=== PATIENT | male | born 1960 | race Caucasian/White ===

== ENCOUNTER 2017-04-03 12:46 | Emergency (ER) | payer MEDICAID, OTHER ==
[~2017-04-03] VITALS: Ht 177.8 cm; Wt 72.6 kg
[2017-04-03 15:24] VITALS: BP 167/97
== END 2017-04-03 15:59 | disposition home or self-care (01) ==
LOC: ER 12:46
DX: M25.512 Pain in left shoulder (principal); Z76.0 Encounter for issue of repeat prescription; Z86.73 Personal history of transient ischemic attack (TIA), and cerebral infarction without residual deficits

== ENCOUNTER 2017-05-20 21:02 | Inpatient (IN) | payer MEDICAID ==
[~2017-05-20] VITALS: Ht 175.3 cm; Wt 63.6 kg
[2017-05-20 22:44] LABS: Basophils # (auto) 0.1 uL; Basophils % (auto) 1.2 % (0.0-2.0); Eosinophils # (auto) 0.2 uL; Eosinophils % (auto) 1.9 % (0.0-7.0); Hematocrit 41.4 % (41.0-53.0); Hemoglobin 13.6 g/dL (13.5-17.5); Lymphocytes # (auto) 2.6 uL; Mean Corpuscular Hemoglobin 29.2 pg (28.0-32.0); Mean Corpuscular Hgb Conc. 32.9 g/dL (32.0-36.0); Mean Corpuscular Volume 88.6 fL (80.0-100.0); Monocytes # (auto) 0.9 uL; Monocytes % (auto) 7.1 % (0.0-12.0); Neutrophils # (auto) 8.1 uL; Neutrophils % (auto) 67.8 % (37.0-80.0); Nucleated Red Blood Cells % 0.2 %; Platelet Count (auto) 331 10^3/uL (140-450); Red Blood Cells 4.67 10^6/uL (4.5-5.90); Red Cell Distribution Width 14.5 % (11.8-14.3)
[2017-05-20 22:53] LABS: Albumin 3.7 g/dL (3.4-5.0); Bilirubin, Total 0.2 mg/dL (0.2-1.0); Calcium 9.2 mg/dL (8.5-10.1)
[2017-05-21 05:43] LABS: Urine Bacteria NONE SEEN /hpf (None Seen); Urine Blood Negative /uL (Negative); Urine Hyaline Cast MOD /lpf (0 - 2); Urine Mucus FEW (None Seen); Urine Specific Gravity 1.018 (1.001-1.035); Urine WBC 2 /hpf (0 - 3)
[2017-05-21] MEDS ORDERED: SODIUM CHLORIDE 0.9% 1,000 ML IVB ONE (08:37)
[2017-05-21] MEDS ORDERED: PROMETHAZINE HCL 25 MG/ML 1ML IV PRN (08:45)
[2017-05-21] MEDS ORDERED: NALBUPHINE HCL 10 MG/1ml INJECTION IV ONE (08:45)
[2017-05-21] MEDS ORDERED: GABA-339 PO (09:50)
[2017-05-21] MEDS ORDERED: AML5T PO (09:50)
[2017-05-21] MEDS ORDERED: LISI40TA PO (09:50)
[2017-05-21] MEDS ORDERED: SIMV-8 PO (09:50)
[2017-05-21] MEDS ORDERED: ONDANSETRON HCL 4 MG/2 ML VIAL IV PRN (10:15)
[2017-05-21] MEDS ORDERED: ACETAMINOPHEN 325 MG TAB PO PRN (10:15)
[2017-05-21] MEDS ORDERED: HYDROcodone-ACET 5/325MG TAB PO PRN (10:15)
[2017-05-21] MEDS ORDERED: NITROGLYCERIN 0.4 MG SL TAB SL PRN (10:15)
[2017-05-21] MEDS ORDERED: TEMAZEPAM 15 MG CAP PO PRN (10:15)
[2017-05-21] MEDS ORDERED: MORPHINE SULFATE 4 MG/ML SYR/VIAL IV PRN ×2 (10:15)
[2017-05-21] MEDS ORDERED: cefTRIAXone 1GM/10ml IVPUSH 10 ML IV ONE (10:30)
[2017-05-21] MEDS: SODIUM CHLORIDE 0.9% 1,000 ML IV SCH ×2 (10:55→19:06)
[2017-05-21 11:26] LABS: INR 0.95 (0.9-1.15); Prothrombin Time 10.4 sec (9.37-12.3)
[2017-05-21] MEDS: IPRATROPIUM BROM 0.5 MG/2.5ML INH SOL NEB SCH ×3 (11:44→23:57)
[2017-05-21] MEDS: ALBUTEROL SULF 2.5 MG/0.5ML(0.5%) NEB SOLN NEB SCH ×3 (11:44→23:56)
[2017-05-21 11:55] VITALS: BP 120/84
[2017-05-21] MEDS ORDERED: GABAPENTIN 300 MG CAP PO SCH (14:00)
[2017-05-21 14:10] VITALS: BP 137/84
[2017-05-21 17:00] VITALS: BP 136/83
[2017-05-21 20:00] VITALS: BP 149/89
[2017-05-21] MEDS ORDERED: INFLUENZA QUAD 2017-2018 0.5 ML SYRG IM ONE (20:00)
[2017-05-21] MEDS ORDERED: PNEUMOCOCCAL VACC POLYS 25 MCG/0.5 ML VIAL IM ONE (20:00)
[2017-05-21 22:00] VITALS: BP 149/89
[2017-05-21] MEDS ORDERED: FAMOTIDINE 20 MG TAB PO SCH (22:00)
[2017-05-21] MEDS: ASPirin-EC 81 mg tab PO SCH (22:21)
[2017-05-21] MEDS: ATORVASTATIN 20 MG TAB PO SCH (22:21)
[2017-05-21] MEDS: LISINOPRIL 20 MG TAB PO SCH (22:22)
[2017-05-21] MEDS: ASCORBIC ACID 500 MG TAB PO SCH (22:22)
[2017-05-22] MEDS: SODIUM CHLORIDE 0.9% 1,000 ML IV SCH ×3 (02:50→11:45)
[2017-05-22 05:00] VITALS: BP 130/79
[2017-05-22] MEDS: IPRATROPIUM BROM 0.5 MG/2.5ML INH SOL NEB SCH ×3 (06:28→19:49)
[2017-05-22] MEDS: ALBUTEROL SULF 2.5 MG/0.5ML(0.5%) NEB SOLN NEB SCH ×3 (06:28→19:49)
[2017-05-22 06:44] LABS: Basophils # (auto) 0.1 uL; Eosinophils # (auto) 0.3 uL; Eosinophils % (auto) 2.9 % (0.0-7.0); Hematocrit 39.7 % (41.0-53.0); Hemoglobin 12.9 g/dL (13.5-17.5); Lymphocytes # (auto) 1.7 uL; Lymphocytes % (auto) 17.8 % (10.0-50.0); Mean Corpuscular Hemoglobin 29.1 pg (28.0-32.0); Mean Corpuscular Hgb Conc. 32.5 g/dL (32.0-36.0); Mean Corpuscular Volume 89.4 fL (80.0-100.0); Monocytes # (auto) 0.7 uL; Monocytes % (auto) 6.8 % (0.0-12.0); Neutrophils # (auto) 6.9 uL; Neutrophils % (auto) 71.5 % (37.0-80.0); Platelet Count (auto) 244 10^3/uL (140-450); Red Blood Cells 4.45 10^6/uL (4.5-5.90); Red Cell Distribution Width 13.9 % (11.8-14.3); White Blood Cell 9.7 10^3/uL (4.4-10.8)
[2017-05-22 07:06] LABS: Albumin 2.9 g/dL (3.4-5.0); BUN/Creatinine Ratio 20.6; Calcium 8.4 mg/dL (8.5-10.1)
[2017-05-22 07:23] LABS: Bilirubin, Total 0.5 mg/dL (0.2-1.0); Total Protein 6.2 g/dL (6.4-8.2)
[2017-05-22 08:38] VITALS: BP 122/78
[2017-05-22] MEDS: cefTRIAXone 1GM/10ml IVPUSH 10 ML IV SCH (08:55)
[2017-05-22] MEDS ORDERED: ASPirin-EC 81 mg tab PO SCH ×2 (10:00→19:00)
[2017-05-22] MEDS: ASCORBIC ACID 500 MG TAB PO SCH ×2 (10:10→21:57)
[2017-05-22] MEDS: ASPirin-EC 81 mg tab PO SCH (10:10)
[2017-05-22] MEDS: MULTIPLE VITAMIN TAB PO SCH (10:10)
[2017-05-22] MEDS: FAMOTIDINE 20 MG TAB PO SCH ×2 (10:10→21:55)
[2017-05-22] MEDS: amLODIPine BESYLATE 5 MG TAB PO SCH (10:11)
[2017-05-22] MEDS: LISINOPRIL 20 MG TAB PO SCH ×2 (10:11→21:56)
[2017-05-22 13:12] VITALS: BP 117/80
[2017-05-22] MEDS: GABAPENTIN 300 MG CAP PO SCH ×2 (14:26→21:55)
[2017-05-22 16:57] VITALS: BP 129/83
[2017-05-22 21:48] VITALS: BP 138/75
[2017-05-22] MEDS: ATORVASTATIN 20 MG TAB PO SCH (21:55)
[2017-05-23] MEDS: IPRATROPIUM BROM 0.5 MG/2.5ML INH SOL NEB SCH ×3 (00:48→12:08)
[2017-05-23] MEDS: ALBUTEROL SULF 2.5 MG/0.5ML(0.5%) NEB SOLN NEB SCH ×3 (00:48→12:08)
[2017-05-23 05:11] VITALS: BP 138/81
[2017-05-23] MEDS: GABAPENTIN 300 MG CAP PO SCH ×2 (05:59→13:56)
[2017-05-23] MEDS: SODIUM CHLORIDE 0.9% 1,000 ML IV SCH ×2 (05:59→12:10)
[2017-05-23 06:33] LABS: BUN/Creatinine Ratio 14.2; Calcium 8.7 mg/dL (8.5-10.1); Potassium 4.5 mmol/L (3.5-5.1)
[2017-05-23 07:42] VITALS: BP 138/95
[2017-05-23] MEDS: ASPirin-EC 81 mg tab PO SCH (08:17)
[2017-05-23] MEDS: cefTRIAXone 1GM/10ml IVPUSH 10 ML IV SCH (08:17)
[2017-05-23] MEDS: MULTIPLE VITAMIN TAB PO SCH (08:17)
[2017-05-23] MEDS: ASCORBIC ACID 500 MG TAB PO SCH (08:17)
[2017-05-23] MEDS: FAMOTIDINE 20 MG TAB PO SCH (08:17)
[2017-05-23] MEDS: amLODIPine BESYLATE 5 MG TAB PO SCH (08:18)
[2017-05-23] MEDS: LISINOPRIL 20 MG TAB PO SCH (08:18)
[2017-05-23 11:50] VITALS: BP 114/84
[2017-05-23] MEDS ORDERED: PNEUMOCOCCAL VACC POLYS 25 MCG/0.5 ML VIAL IM ONE (13:45)
[2017-05-23] MEDS ORDERED: INFLUENZA QUAD 2017-2018 0.5 ML SYRG IM ONE (13:45)
== END 2017-05-23 15:00 | disposition home or self-care (01) | DRG 282 ==
LOC: ER 21:02 → OVERFLOW 21:03 → CENTRAL 05-21 14:11
PROVIDERS: ADMIT Internal Medicine; ATTEND Internal Medicine
DX: K85.90 Acute pancreatitis without necrosis or infection, unspecified (principal); N17.0 Acute kidney failure with tubular necrosis; N18.4 Chronic kidney disease, stage 4 (severe); R65.10 Systemic inflammatory response syndrome (SIRS) of non-infectious origin without acute organ dysfunction; I69.351 Hemiplegia and hemiparesis following cerebral infarction affecting right dominant side; E78.5 Hyperlipidemia, unspecified; G89.29 Other chronic pain; R91.1 Solitary pulmonary nodule; I12.9 Hypertensive chronic kidney disease with stage 1 through stage 4 chronic kidney disease, or unspecified chronic kidney disease; M25.512 Pain in left shoulder; J44.9 Chronic obstructive pulmonary disease, unspecified; M47.816 Spondylosis without myelopathy or radiculopathy, lumbar region; Z82.49 Family history of ischemic heart disease and other diseases of the circulatory system; Z87.891 Personal history of nicotine dependence; Z79.899 Other long term (current) drug therapy; Z23 Encounter for immunization
CPT/HCPCS: 36415; 71046; 71250; 73030; 74176; 80048; 80053; 81001; 82150; 83605; 83690; 83735; 84443; 84484; 85025; 85610; 87040; 87045; 87493; 87899; 93005; 93306; 93886; 94640; 96361; 96374; 96375

== ENCOUNTER 2017-06-25 16:46 | Emergency (ER) | payer MEDICAID ==
[~2017-06-25] VITALS: Ht 175.3 cm; Wt 59.0 kg
[~2017-06-25 16:46] MED LIST: AML5T PO; GABA-339 PO; LISI40TA PO; SIMV-8 PO
[2017-06-25 17:30] VITALS: BP 142/81
[2017-06-25 17:53] LABS: Urine Bacteria FEW /hpf (None Seen); Urine Blood Negative /uL (Negative); Urine Hyaline Cast MOD /lpf (0 - 2); Urine Mucus FEW (None Seen); Urine Specific Gravity 1.016 (1.001-1.035); Urine WBC 1 /hpf (0 - 3)
[2017-06-25 17:59] LABS: Basophils # (auto) 0.1 uL; Basophils % (auto) 0.7 % (0.0-2.0); Eosinophils # (auto) 0.2 uL; Eosinophils % (auto) 1.6 % (0.0-7.0); Hematocrit 44.1 % (41.0-53.0); Hemoglobin 14.6 g/dL (13.5-17.5); Lymphocytes # (auto) 1.5 uL; Mean Corpuscular Hemoglobin 29.1 pg (28.0-32.0); Mean Corpuscular Hgb Conc. 33.2 g/dL (32.0-36.0); Mean Corpuscular Volume 87.5 fL (80.0-100.0); Monocytes # (auto) 0.7 uL; Neutrophils # (auto) 7.8 uL; Neutrophils % (auto) 75.7 % (37.0-80.0); Nucleated Red Blood Cells % 0.4 %; Platelet Count (auto) 265 10^3/uL (140-450); Red Blood Cells 5.04 10^6/uL (4.5-5.90); Red Cell Distribution Width 14.5 % (11.8-14.3); White Blood Cell 10.3 10^3/uL (4.4-10.8)
[2017-06-25 18:16] LABS: Albumin 4.1 g/dL (3.4-5.0); BUN/Creatinine Ratio 17.8; Bilirubin, Total 0.2 mg/dL (0.2-1.0); Calcium 8.5 mg/dL (8.5-10.1); Potassium 4.3 mmol/L (3.5-5.1)
== END 2017-06-26 02:20 | disposition left against medical advice (07) ==
LOC: ER 16:46
DX: R10.9 Unspecified abdominal pain (principal); R11.2 Nausea with vomiting, unspecified; Z53.21 Procedure and treatment not carried out due to patient leaving prior to being seen by health care provider
CPT/HCPCS: 36415; 80053; 81001; 82150; 83690; 85025; 93005

== ENCOUNTER 2018-01-22 14:45 | Inpatient (IN) | payer MEDICAID ==
[~2018-01-22] VITALS: Ht 177.8 cm; Wt 70.2 kg
[2018-01-22] MEDS: ACCU-CHEK COMFORT CURVE STRIP VI SCH (00:15)
[2018-01-22] MEDS: GABAPENTIN 300 MG CAP PO SCH (00:30)
[2018-01-22] MEDS: InsuLIN REG 1unit/0.01ml Soln (100units/ml) SC SCH (00:30)
[2018-01-22] MEDS: LISINOPRIL 20 MG TAB PO SCH (00:30)
[2018-01-22] MEDS: FAMOTIDINE 20 MG TAB PO SCH (00:30)
[2018-01-22] MEDS: ATORVASTATIN 20 MG TAB PO SCH (00:30)
[~2018-01-22 14:45] MED LIST changes: +ASPI81CH43 PO
[2018-01-22 15:22] LABS: Basophils # (auto) 0.1 uL; Basophils % (auto) 1.3 % (0.0-2.0); Eosinophils # (auto) 0.1 uL; Eosinophils % (auto) 1.6 % (0.0-7.0); Hemoglobin 15.5 g/dL (13.5-17.5); Lymphocytes # (auto) 2.1 uL; Lymphocytes % (auto) 23.8 % (10.0-50.0); Mean Corpuscular Hemoglobin 29.8 pg (28.0-32.0); Mean Corpuscular Hgb Conc. 33.6 g/dL (32.0-36.0); Mean Corpuscular Volume 88.6 fL (80.0-100.0); Monocytes # (auto) 0.5 uL; Monocytes % (auto) 5.9 % (0.0-12.0); Neutrophils # (auto) 5.8 uL; Neutrophils % (auto) 67.4 % (37.0-80.0); Nucleated Red Blood Cells % 0.1 %; Platelet Count (auto) 192 10^3/uL (140-450); Red Cell Distribution Width 14.3 % (11.8-14.3); White Blood Cell 8.6 10^3/uL (4.4-10.8)
[2018-01-22 15:41] LABS: Albumin 3.7 g/dL (3.4-5.0); BUN/Creatinine Ratio 13.8; Calcium 9.1 mg/dL (8.5-10.1); Potassium 3.8 mmol/L (3.5-5.1)
[2018-01-22 15:50] LABS: Bilirubin, Total 0.5 mg/dL (0.2-1.0); Total Protein 7.7 g/dL (6.4-8.2)
[2018-01-22] MEDS ORDERED: MORPHINE SULFATE 4 MG/ML SYR/VIAL IV ONE (17:45)
[2018-01-22] MEDS ORDERED: ONDANSETRON HCL 4 MG/2 ML VIAL IV ONE (17:45)
[2018-01-22] MEDS ORDERED: DEXTROSE (50%) 50ML SYRG IV PRN (19:00)
[2018-01-22] MEDS ORDERED: cloNIDine HCL 0.1 MG TAB PO PRN (19:15)
[2018-01-22] MEDS ORDERED: NITROGLYCERIN 0.4 MG SL TAB SL PRN (19:15)
[2018-01-22] MEDS ORDERED: TEMAZEPAM 15 MG CAP PO PRN (19:15)
[2018-01-22] MEDS ORDERED: DOCUSATE SOD 100 MG CAP PO PRN (19:15)
[2018-01-22] MEDS ORDERED: ONDANSETRON HCL 4 MG/2 ML VIAL IV PRN (19:15)
[2018-01-22] MEDS ORDERED: ACETAMINOPHEN 325 MG TAB PO PRN (19:15)
[2018-01-22] MEDS ORDERED: MORPHINE SULFATE 4 MG/ML SYR/VIAL IV PRN (19:15)
[2018-01-22] MEDS ORDERED: cefTRIAXone 1GM/50ML D5W 50 ML IV ONE (19:15)
[2018-01-22 19:21] LABS: INR 0.96 (0.9-1.15); Prothrombin Time 10.3 sec (9.27-12.13)
[2018-01-22] MEDS: SODIUM CHLORIDE 0.9% 1,000 ML IV SCH (21:24)
[2018-01-22 22:55] LABS: Urine Bacteria NONE SEEN /hpf (None Seen); Urine Blood Negative /uL (Negative); Urine Hyaline Cast FEW /lpf (0 - 2); Urine Mucus FEW (None Seen); Urine WBC 1 /hpf (0 - 3)
[2018-01-23] VITALS (7 sets, daily range): BP systolic 139–151; BP diastolic 80–93
[2018-01-23] MEDS: metroNIDAZOLE 500MG/100ML 100 ML IV SCH ×2 (00:42→06:36)
[2018-01-23 05:01] LABS: Urine Bacteria NONE SEEN /hpf (None Seen); Urine Blood Negative /uL (Negative); Urine Specific Gravity 1.006 (1.001-1.035); Urine WBC <1 /hpf (0 - 3)
[2018-01-23] MEDS: MORPHINE SULFATE 4 MG/ML SYR/VIAL IV PRN (05:25)
[2018-01-23 05:32] LABS: Basophils # (auto) 0.1 uL; Basophils % (auto) 0.9 % (0.0-2.0); Eosinophils # (auto) 0.4 uL; Eosinophils % (auto) 4.8 % (0.0-7.0); Hematocrit 42.2 % (41.0-53.0); Hemoglobin 14.1 g/dL (13.5-17.5); Lymphocytes # (auto) 2.2 uL; Lymphocytes % (auto) 27.5 % (10.0-50.0); Mean Corpuscular Hemoglobin 30.6 pg (28.0-32.0); Mean Corpuscular Hgb Conc. 33.3 g/dL (32.0-36.0); Mean Corpuscular Volume 91.6 fL (80.0-100.0); Monocytes # (auto) 0.7 uL; Monocytes % (auto) 8.4 % (0.0-12.0); Neutrophils # (auto) 4.7 uL; Neutrophils % (auto) 58.4 % (37.0-80.0); Nucleated Red Blood Cells % 0.1 %; Platelet Count (auto) 167 10^3/uL (140-450); Red Cell Distribution Width 14.4 % (11.8-14.3); White Blood Cell 8.1 10^3/uL (4.4-10.8)
[2018-01-23 05:46] LABS: Potassium 3.5 mmol/L (3.5-5.1)
[2018-01-23 05:53] LABS: Albumin 3.1 g/dL (3.4-5.0); BUN/Creatinine Ratio 15.7; Bilirubin, Total 0.5 mg/dL (0.2-1.0); Calcium 7.9 mg/dL (8.5-10.1); Total Protein 6.3 g/dL (6.4-8.2)
[2018-01-23] MEDS: ACCU-CHEK COMFORT CURVE STRIP VI SCH ×4 (06:37→21:25)
[2018-01-23] MEDS: GABAPENTIN 300 MG CAP PO SCH ×3 (06:37→21:14)
[2018-01-23] MEDS: InsuLIN REG 1unit/0.01ml Soln (100units/ml) SC SCH ×4 (06:37→21:24)
[2018-01-23] MEDS ORDERED: BACL10TA PO (06:46)
[2018-01-23] MEDS ORDERED: cefTRIAXone 1GM/50ML D5W 50 ML IV SCH (09:00)
[2018-01-23] MEDS: FAMOTIDINE 20 MG TAB PO SCH ×2 (10:15→21:14)
[2018-01-23] MEDS: amLODIPine BESYLATE 5 MG TAB PO SCH (10:15)
[2018-01-23] MEDS: MULTIPLE VITAMIN TAB PO SCH (10:15)
[2018-01-23] MEDS: LISINOPRIL 20 MG TAB PO SCH ×2 (10:16→21:24)
[2018-01-23] MEDS: SODIUM CHLORIDE 0.9% 1,000 ML IV SCH ×3 (12:05→21:33)
[2018-01-23] MEDS: ATORVASTATIN 20 MG TAB PO SCH (21:15)
[2018-01-23] MEDS: HYDROcodone-ACET 5/325MG TAB PO PRN (21:39)
[2018-01-24 05:10] VITALS: BP 140/89
[2018-01-24 05:33] LABS: Basophils # (auto) 0.1 uL; Basophils % (auto) 1.4 % (0.0-2.0); Eosinophils # (auto) 0.4 uL; Eosinophils % (auto) 6.3 % (0.0-7.0); Hematocrit 47.6 % (41.0-53.0); Hemoglobin 15.6 g/dL (13.5-17.5); Lymphocytes # (auto) 2.1 uL; Lymphocytes % (auto) 30.2 % (10.0-50.0); Mean Corpuscular Hemoglobin 29.8 pg (28.0-32.0); Mean Corpuscular Hgb Conc. 32.8 g/dL (32.0-36.0); Mean Corpuscular Volume 90.8 fL (80.0-100.0); Monocytes # (auto) 0.6 uL; Monocytes % (auto) 8.6 % (0.0-12.0); Neutrophils # (auto) 3.8 uL; Neutrophils % (auto) 53.5 % (37.0-80.0); Nucleated Red Blood Cells % 0.1 %; Platelet Count (auto) 174 10^3/uL (140-450); Red Blood Cells 5.24 10^6/uL (4.5-5.90); Red Cell Distribution Width 14.1 % (11.8-14.3)
[2018-01-24 05:58] LABS: Albumin 3.1 g/dL (3.4-5.0); Calcium 8.1 mg/dL (8.5-10.1); Potassium 4.2 mmol/L (3.5-5.1)
[2018-01-24] MEDS: GABAPENTIN 300 MG CAP PO SCH ×3 (06:00→21:56)
[2018-01-24 06:02] LABS: BUN/Creatinine Ratio 12.2; Bilirubin, Total 0.4 mg/dL (0.2-1.0); Total Protein 6.4 g/dL (6.4-8.2)
[2018-01-24] MEDS: InsuLIN REG 1unit/0.01ml Soln (100units/ml) SC SCH ×4 (06:15→23:31)
[2018-01-24] MEDS: SODIUM CHLORIDE 0.9% 1,000 ML IV SCH ×2 (06:15→17:59)
[2018-01-24] MEDS: ACCU-CHEK COMFORT CURVE STRIP VI SCH ×4 (06:16→23:30)
[2018-01-24] MEDS ORDERED: DEXTROSE (50%) 50ML SYRG IV PRN (07:45)
[2018-01-24 08:00] VITALS: BP 145/100
[2018-01-24 09:00] VITALS: BP 145/94
[2018-01-24] MEDS ORDERED: FLUMAZENIL 0.1 MG/ML INJ 10ML MDV IV ONE (09:48)
[2018-01-24] MEDS ORDERED: NALOXONE HCL 0.4 MG/ML VIAL ONE (09:48)
[2018-01-24] MEDS ORDERED: MIDAZOLAM HCL 5 MG/ML-1ML VIAL ONE (09:49)
[2018-01-24] MEDS ORDERED: fentaNYL CITRATE 100 MCG/2 ML VL ONE (09:49)
[2018-01-24] MEDS ORDERED: diphenhdrAMINE 50mg/ml (500mg/10ml VIAL) ONE (09:49)
[2018-01-24] MEDS ORDERED: LIDOCAINE VISCOUS 2% 15ML UD ONE ×2 (09:49→12:27)
[2018-01-24] MEDS ORDERED: SODIUM CHLORIDE LOCK 10 ML ONE (09:49)
[2018-01-24] MEDS: amLODIPine BESYLATE 5 MG TAB PO SCH (09:55)
[2018-01-24] MEDS: LISINOPRIL 20 MG TAB PO SCH ×2 (09:56→21:58)
[2018-01-24] MEDS: MORPHINE SULFATE 4 MG/ML SYR/VIAL IV PRN (09:56)
[2018-01-24] MEDS: MULTIPLE VITAMIN TAB PO SCH (15:58)
[2018-01-24 17:00] VITALS: BP 158/93
[2018-01-24] MEDS: PANTOPRAZOLE 40 MG TAB PO SCH (21:56)
[2018-01-24] MEDS: ATORVASTATIN 20 MG TAB PO SCH (21:56)
[2018-01-24 22:00] VITALS: BP 145/96
[2018-01-25 05:00] VITALS: BP 134/79
[2018-01-25] MEDS: GABAPENTIN 300 MG CAP PO SCH ×3 (05:13→21:34)
[2018-01-25] MEDS: SODIUM CHLORIDE 0.9% 1,000 ML IV SCH ×2 (05:14→20:21)
[2018-01-25] MEDS: InsuLIN REG 1unit/0.01ml Soln (100units/ml) SC SCH ×4 (05:17→21:34)
[2018-01-25] MEDS: ACCU-CHEK COMFORT CURVE STRIP VI SCH ×4 (05:17→21:35)
[2018-01-25 06:14] LABS: Amylase 121 U/L (25-115); Lipase 657 U/L (73-393)
[2018-01-25] MEDS ORDERED: diphenhdrAMINE 50mg/ml (500mg/10ml VIAL) ONE (08:54)
[2018-01-25 09:15] VITALS: BP 137/94
[2018-01-25] MEDS: LISINOPRIL 20 MG TAB PO SCH ×2 (10:05→21:38)
[2018-01-25] MEDS: amLODIPine BESYLATE 5 MG TAB PO SCH (10:06)
[2018-01-25] MEDS: PANTOPRAZOLE 40 MG TAB PO SCH ×2 (10:06→21:34)
[2018-01-25] MEDS: MULTIPLE VITAMIN TAB PO SCH (10:07)
[2018-01-25] MEDS ORDERED: MORPHINE SULFATE 4 MG/ML SYR/VIAL IV PRN (10:30)
[2018-01-25 13:07] VITALS: BP 139/92
[2018-01-25 17:04] VITALS: BP 137/85
[2018-01-25] MEDS: ATORVASTATIN 20 MG TAB PO SCH (21:34)
[2018-01-25] MEDS: HYDROcodone-ACET 5/325MG TAB PO PRN (21:35)
[2018-01-25 22:00] VITALS: BP 153/93
[2018-01-25 22:22] LABS: Alcohol, Urine < 3.0 mg/dL (0-5); Amphetamine Screen, Urine NEGATIVE (NEGATIVE); Barbiturate Scree,Urine NEGATIVE (NEGATIVE); Benzodiazephine Screen, Urine NEGATIVE (NEGATIVE); Cannabinoid Screen, Urine POSITIVE (NEGATIVE); Cocaine Screen, Urine NEGATIVE (NEGATIVE); Opiate Scree,Urine NEGATIVE (NEGATIVE); Phencyclidine Screen, Urine NEGATIVE (NEGATIVE)
[2018-01-26 05:09] VITALS: BP 145/79
[2018-01-26] MEDS: InsuLIN REG 1unit/0.01ml Soln (100units/ml) SC SCH ×2 (05:40→11:29)
[2018-01-26] MEDS: SODIUM CHLORIDE 0.9% 1,000 ML IV SCH ×2 (05:40→10:39)
[2018-01-26] MEDS: ACCU-CHEK COMFORT CURVE STRIP VI SCH ×2 (05:40→11:29)
[2018-01-26] MEDS: GABAPENTIN 300 MG CAP PO SCH ×2 (05:40→14:33)
[2018-01-26 08:30] VITALS: BP 143/83
[2018-01-26 09:02] VITALS: BP 143/83
[2018-01-26] MEDS: PANTOPRAZOLE 40 MG TAB PO SCH (09:38)
[2018-01-26] MEDS: MULTIPLE VITAMIN TAB PO SCH (09:38)
[2018-01-26] MEDS: LISINOPRIL 20 MG TAB PO SCH (09:38)
[2018-01-26] MEDS: amLODIPine BESYLATE 5 MG TAB PO SCH (09:38)
[2018-01-26] MEDS: HYDROcodone-ACET 5/325MG TAB PO PRN (09:39)
[2018-01-26 13:09] VITALS: BP 143/94
[2018-01-26 15:28] VITALS: BP 143/94
== END 2018-01-26 18:57 | disposition home or self-care (01) | DRG 282 ==
LOC: EDUNIT# 14:45 → EDBD 14:45 → ER 14:49 → TELE 14:50 → TELE-WESTW 22:55
PROVIDERS: ADMIT Internal Medicine; ATTEND Hospitalist
PROC: 0DB68ZX Excision of Stomach, Via Natural or Artificial Opening Endoscopic, Diagnostic (ICD-10-PCS; principal; 2018-01-24 12:22)
DX: K85.90 Acute pancreatitis without necrosis or infection, unspecified (principal); E11.22 Type 2 diabetes mellitus with diabetic chronic kidney disease; N18.3 Chronic kidney disease, stage 3 (moderate); K92.1 Melena; I12.9 Hypertensive chronic kidney disease with stage 1 through stage 4 chronic kidney disease, or unspecified chronic kidney disease; I70.8 Atherosclerosis of other arteries; I69.351 Hemiplegia and hemiparesis following cerebral infarction affecting right dominant side; G89.4 Chronic pain syndrome; G40.909 Epilepsy, unspecified, not intractable, without status epilepticus; E27.9 Disorder of adrenal gland, unspecified; E78.5 Hyperlipidemia, unspecified; F17.210 Nicotine dependence, cigarettes, uncomplicated; K29.80 Duodenitis without bleeding; M43.16 Spondylolisthesis, lumbar region; N40.0 Benign prostatic hyperplasia without lower urinary tract symptoms; Z82.49 Family history of ischemic heart disease and other diseases of the circulatory system; K29.50 Unspecified chronic gastritis without bleeding; F12.90 Cannabis use, unspecified, uncomplicated
CPT/HCPCS: 36415; 70450; 71045; 74176; 76705; 78226; 80053; 80061; 80307; 80320; 81001; 82150; 82962; 83036; 83690; 85025; 85610; 86850; 86900; 86901; 87086; 93005; 94761; 96374; 96375; 97116; 97163; A6257; G0378; J0696; J1200; J1815; J2250; J2405; J3490

== ENCOUNTER 2020-09-02 13:01 | Inpatient (IN) | payer MEDICAID ==
[~2020-09-02] VITALS: Ht 175.3 cm; Wt 60.5 kg
[~2020-09-02 13:01] MED LIST changes: +BACL10TA PO; -LISI40TA PO; +LISI40TA11 PO
[2020-09-02 14:50] LABS: Basophils # (auto) 0.1 10 ^3/uL (0-0.2); Basophils % (auto) 0.6 % (0.0-2.0); Eosinophils # (auto) 0.2 10 ^3/uL (0-0.8); Hematocrit 41.8 % (41.0-53.0); Hemoglobin 13.9 g/dL (13.5-17.5); Lymphocytes # (auto) 1.6 10 ^3/uL (0.4-5.4); Lymphocytes % (auto) 13.8 % (10.0-50.0); Mean Corpuscular Hemoglobin 28.2 pg (28.0-32.0); Mean Corpuscular Hgb Conc. 33.2 g/dL (32.0-36.0); Mean Corpuscular Volume 85.1 fL (80.0-100.0); Monocytes # (auto) 0.6 10 ^3/uL (0-1.3); Monocytes % (auto) 4.9 % (0.0-12.0); Neutrophils # (auto) 8.9 10 ^3/uL (1.6-8.6); Neutrophils % (auto) 78.7 % (37.0-80.0); Nucleated Red Blood Cells % 0.1 %; Red Cell Distribution Width 16.7 % (11.8-14.3); White Blood Cell 11.3 10^3/uL (4.4-10.8)
[2020-09-02 15:04] LABS: Albumin 3.2 g/dL (3.4-5.0); BUN/Creatinine Ratio 12.3; Calcium 8.7 mg/dL (8.5-10.1); Potassium 4.6 mmol/L (3.5-5.1)
[2020-09-02 15:09] LABS: Bilirubin, Total 0.4 mg/dL (0.2-1.0); Total Protein 6.8 g/dL (6.4-8.2)
[2020-09-02] MEDS ORDERED: FUROSEMIDE 40 MG/4 ML VIAL IV ONE (17:00)
[2020-09-02] MEDS ORDERED: SPIRONOLACTONE 25 MG TAB PO ONE (17:00)
[2020-09-02] MEDS ORDERED: SODIUM CHLORIDE 0.9% 1,000 ML IV ONE (17:00)
[2020-09-02] MEDS ORDERED: hydrALAZINE HCL 20 MG/ML VL IV ONE (17:00)
[2020-09-02] MEDS ORDERED: cefTRIAXone 1GM/50ML D5W 50 ML IV ONE (17:00)
[2020-09-02 17:59] LABS: INR 1.01 (0.9-1.15); Partial Thromboplastin Time 31.7 sec (23.0-31.2)
[2020-09-02] MEDS ORDERED: LORazepam 2MG/ML-1ML VIAL IV PRN (18:30)
[2020-09-02] MEDS ORDERED: MORPHINE SULFATE INJECTION 2 MG/ML SYRG IV PRN ×2 (18:30)
[2020-09-02] MEDS ORDERED: LABETALOL HCL 5 MG/ML 4ML SYRINGE IV PRN (18:30)
[2020-09-02] MEDS ORDERED: ONDANSETRON HCL 4 MG/2 ML VIAL IV PRN (18:30)
[2020-09-02] MEDS ORDERED: NITROGLYCERIN 0.4 MG SL TAB SL PRN (18:30)
[2020-09-02] MEDS ORDERED: ACETAMINOPHEN 325 MG TAB PO PRN (18:30)
[2020-09-02] MEDS ORDERED: HYDROcodone-ACET 5/325MG TAB PO PRN (18:30)
[2020-09-02 19:07] LABS: Cholesterol 211 mg/dL (< 200)
[2020-09-02 19:10] LABS: HDL Cholesterol 52 mg/dL (40-59); LDL Cholesterol 143 mg/dL (< 100); Triglycerides 68 mg/dL (< 150)
[2020-09-02 20:46] LABS: Alcohol, Urine < 3.0 mg/dL (0-10); Amphetamine Screen, Urine POSITIVE (NEGATIVE); Barbiturate Scree,Urine NEGATIVE (NEGATIVE); Benzodiazephine Screen, Urine NEGATIVE (NEGATIVE); Cannabinoid Screen, Urine NEGATIVE (NEGATIVE); Cocaine Screen, Urine NEGATIVE (NEGATIVE); Opiate Scree,Urine NEGATIVE (NEGATIVE); Phencyclidine Screen, Urine NEGATIVE (NEGATIVE)
[2020-09-02 21:20] LABS: Urine Bacteria FEW /hpf (None Seen); Urine Blood Negative /uL (Negative); Urine Mucus FEW (None Seen); Urine Specific Gravity 1.006 (1.001-1.035); Urine WBC <1 /hpf (0 - 3)
[2020-09-02] MEDS: ATORVASTATIN 20 MG TAB PO SCH (21:22)
[2020-09-02] MEDS ORDERED: CARVEDILOL 3.125 MG TAB PO SCH (22:00)
[2020-09-02 22:40] VITALS: BP 166/99
[2020-09-02 23:00] VITALS: BP 166/99
[2020-09-03] MEDS ORDERED: PNEUMOCOCCAL VACC POLYS 25 MCG/0.5 ML VIAL IM ONE (03:00)
[2020-09-03 05:00] VITALS: BP 151/111
[2020-09-03 05:26] LABS: Basophils # (auto) 0.1 10 ^3/uL (0-0.2); Basophils % (auto) 0.7 % (0.0-2.0); Eosinophils # (auto) 0.2 10 ^3/uL (0-0.8); Eosinophils % (auto) 2.9 % (0.0-7.0); Hematocrit 43.5 % (41.0-53.0); Hemoglobin 14.7 g/dL (13.5-17.5); Lymphocytes # (auto) 1.9 10 ^3/uL (0.4-5.4); Lymphocytes % (auto) 22.4 % (10.0-50.0); Mean Corpuscular Hemoglobin 28.8 pg (28.0-32.0); Mean Corpuscular Hgb Conc. 33.8 g/dL (32.0-36.0); Mean Corpuscular Volume 85.2 fL (80.0-100.0); Monocytes # (auto) 0.5 10 ^3/uL (0-1.3); Monocytes % (auto) 5.6 % (0.0-12.0); Neutrophils # (auto) 5.8 10 ^3/uL (1.6-8.6); Neutrophils % (auto) 68.4 % (37.0-80.0); Red Cell Distribution Width 16.6 % (11.8-14.3); White Blood Cell 8.5 10^3/uL (4.4-10.8)
[2020-09-03 05:41] LABS: Nucleated Red Blood Cells % 4.7 %
[2020-09-03 05:57] LABS: Potassium 4.4 mmol/L (3.5-5.1)
[2020-09-03 06:01] LABS: BUN/Creatinine Ratio 13.1; Calcium 8.5 mg/dL (8.5-10.1)
[2020-09-03 08:25] VITALS: BP 158/105
[2020-09-03] MEDS: ASPirin 81 mg TAB PO SCH (09:52)
[2020-09-03] MEDS: FUROSEMIDE 20 MG/2 ML VIAL IV SCH (09:52)
[2020-09-03] MEDS: PANTOPRAZOLE 40 MG TAB PO SCH (09:53)
[2020-09-03] MEDS: CARVEDILOL 3.125 MG TAB PO SCH ×2 (09:53→22:17)
[2020-09-03] MEDS: CLOPIDOGREL BISULFATE 75 MG TAB PO SCH (09:53)
[2020-09-03] MEDS: ENOXAPARIN SOD 30 MG/0.3 ML SYRINGE SC SCH (09:54)
[2020-09-03] MEDS ORDERED: LISINOPRIL 20 MG TAB PO SCH (10:00)
[2020-09-03 13:00] VITALS: BP 134/71
[2020-09-03] MEDS: hydrALAZINE HCL 25 MG TAB PO SCH ×2 (14:00→22:17)
[2020-09-03] MEDS ORDERED: hydrALAZINE HCL 25 MG TAB PO SCH (14:00)
[2020-09-03 17:02] VITALS: BP 134/97
[2020-09-03] MEDS ORDERED: amLODIPine BESYLATE 5 MG TAB PO SCH (18:00)
[2020-09-03 22:00] VITALS: BP 140/103
[2020-09-03] MEDS: ATORVASTATIN 20 MG TAB PO SCH (22:17)
[2020-09-04 05:00] VITALS: BP 159/97
[2020-09-04] MEDS: hydrALAZINE HCL 25 MG TAB PO SCH (06:25)
[2020-09-04 08:43] VITALS: BP 137/84
[2020-09-04] MEDS: FUROSEMIDE 20 MG/2 ML VIAL IV SCH (09:31)
[2020-09-04] MEDS: PANTOPRAZOLE 40 MG TAB PO SCH (09:32)
[2020-09-04] MEDS: CARVEDILOL 3.125 MG TAB PO SCH (09:32)
[2020-09-04] MEDS: ASPirin 81 mg TAB PO SCH (09:32)
[2020-09-04] MEDS: ENOXAPARIN SOD 30 MG/0.3 ML SYRINGE SC SCH (09:32)
[2020-09-04] MEDS: CLOPIDOGREL BISULFATE 75 MG TAB PO SCH (09:32)
[2020-09-04] MEDS ORDERED: CLOP75TA28 PO (11:51)
[2020-09-04] MEDS ORDERED: HYDR50TA15 PO (11:51)
[2020-09-04] MEDS ORDERED: SIMV-13 PO (11:51)
[2020-09-04] MEDS ORDERED: AML5T PO (11:51)
[2020-09-04] MEDS ORDERED: CAR125T PO (11:51)
[2020-09-04] MEDS ORDERED: ASPI1CHW15 PO (11:51)
[2020-09-04] MEDS ORDERED: [UNRECOGNIZED DRUG - CODE] XX (11:52)
[2020-09-04 12:18] VITALS: BP 137/84
== END 2020-09-04 14:00 | disposition home health service (06) | DRG 199 ==
LOC: ER 13:01 → EDBD 13:01 → TELE 18:28 → TELE-WESTW 22:35
PROVIDERS: ADMIT Nurse Practitioner Acute Care; ATTEND Hospitalist
DX: I16.1 Hypertensive emergency (principal); N17.0 Acute kidney failure with tubular necrosis; I12.9 Hypertensive chronic kidney disease with stage 1 through stage 4 chronic kidney disease, or unspecified chronic kidney disease; E11.21 Type 2 diabetes mellitus with diabetic nephropathy; R56.9 Unspecified convulsions; E44.1 Mild protein-calorie malnutrition; N18.4 Chronic kidney disease, stage 4 (severe); E11.22 Type 2 diabetes mellitus with diabetic chronic kidney disease; R09.89 Other specified symptoms and signs involving the circulatory and respiratory systems; K80.20 Calculus of gallbladder without cholecystitis without obstruction; F15.10 Other stimulant abuse, uncomplicated; F12.10 Cannabis abuse, uncomplicated; D72.829 Elevated white blood cell count, unspecified; Z68.1 Body mass index [BMI] 19.9 or less, adult; Z20.822 Contact with and (suspected) exposure to COVID-19; E78.5 Hyperlipidemia, unspecified; F17.210 Nicotine dependence, cigarettes, uncomplicated; J45.909 Unspecified asthma, uncomplicated; N40.0 Benign prostatic hyperplasia without lower urinary tract symptoms; Z86.73 Personal history of transient ischemic attack (TIA), and cerebral infarction without residual deficits; Z79.02 Long term (current) use of antithrombotics/antiplatelets; Z79.899 Other long term (current) drug therapy; Z80.1 Family history of malignant neoplasm of trachea, bronchus and lung; Z82.49 Family history of ischemic heart disease and other diseases of the circulatory system; Z91.14 Patient's other noncompliance with medication regimen
CPT/HCPCS: 36415; 71045; 76775; 80048; 80053; 80061; 80307; 81001; 82306; 83036; 83520; 83735; 83880; 83970; 84100; 84443; 84484; 85025; 85610; 85730; 86038; 86160; 86256; 87040; 87426; 93005; 93306; 96365; 96375; G0378; J0696; J2405; J3490